=== PATIENT | male | born 1935 | race Caucasian/White ===

== ENCOUNTER 2017-09-04 10:50 | Emergency (ER) | payer MEDICARE, OTHER ==
[~2017-09-04] VITALS: Ht 180.3 cm; Wt 84.7 kg
[2017-09-04 10:50] VITALS: BP 181/86; PULSE 65; RESP 18; TEMP 97.9; O2SAT 97
[~2017-09-04 10:50] MED LIST: AMLO2.5T PO; CELE100 PO; ESZO3 PO; GLUCTAB PO; LEXA10TA PO; SOTA80TA PO; WARF2.5 PO; [UNRECOGNIZED DRUG - OTHER] PO
[2017-09-04] MEDS ORDERED: WARF-18 PO (11:12)
[2017-09-04] MEDS ORDERED: ESZO2 PO (11:12)
[2017-09-04] MEDS ORDERED: SOTA80TA PO (11:12)
[2017-09-04] MEDS ORDERED: AMLO2.5T PO (11:12)
[2017-09-04] MEDS ORDERED: LEXA10TA PO (11:12)
[2017-09-04] MEDS ORDERED: METF500T PO (11:12)
[2017-09-04] MEDS ORDERED: [UNRECOGNIZED DRUG - OTHER] (11:12)
[2017-09-04] MEDS ORDERED: WARF-58 PO (11:12)
[2017-09-04] MEDS ORDERED: CELE100C PO (11:12)
--- NOTE | 2017-09-04 11:13 | PD ---
HPI Chief Complaint: Musculoskeletal Complaint Time Seen by Provider: 11:04 Travel History International Travel<30 days: No Contact w/Intl Traveler<30days: No Traveled to known affect area: No History of Present Illness HPI 81-year-old male presents to the emergency department for evaluation of left shoulder pain. Patient states that his went to the bathroom early this morning and fell. He was trying to pick her up when he injured his left shoulder. He denies any falling. No head injury or LOC. No neck pain or back pain. No chest pain or abdominal pain. He states the pain is 10/10 to the left humeral head without radiation, worse with movement, alleviated with keeping the arm still. Pain is aching and throbbing in nature. Patient reports history of diabetes and hypertension. He denies any other symptoms or complaints at this time. Mild to moderate severity. PFSH Past Medical History Atrial Fibrillation: Yes High Cholesterol: Yes Diabetes: Yes (Type 2) Patient Takes Glucophage: Yes Diminished Hearing: No Tetanus Vaccination: Unknown Past Surgical History Appendectomy: Yes Cholecystectomy: Yes Social History Alcohol Use: No Tobacco Use: No Substance Use: No Allergies-Medications (Allergen,Severity, Reaction): Coded Allergies: No Known Allergies (Verified Adverse Reaction, Unknown, 09/04/17) Reported Meds & Prescriptions Reported Meds & Active Scripts Active Reported Warfarin 3 Mg Tab 3 Mg PO TUTHSASU Warfarin 2.5 Mg Tab 2.5 Mg PO MOWEFR [Adricor] Sotalol (Sotalol HCl) 80 Mg Tab 80 Mg PO DAILY Lunesta (Eszopiclone) 2 Mg Tab 2 Mg PO HS PRN Lexapro (Escitalopram Oxalate) 10 Mg Tab 10 Mg PO DAILY Celebrex (Celecoxib) 100 Mg Cap 100 Mg PO DAILY Amlodipine (Amlodipine Besylate) 2.5 Mg Tab 2.5 Mg PO DAILY Metformin (Metformin HCl) 500 Mg Tab 500 Mg PO BIDPC Review of Systems Except as stated in HPI: all other systems reviewed are Neg Physical Exam Narrative GENERAL: Well-nourished, well-developed elderly male patient, afebrile. SKIN: Focused skin assessment warm/dry. No lacerations or abrasions. HEAD: Normocephalic. Atraumatic. EYES: No scleral icterus. No injection or drainage. NECK: Supple, trachea midline. No JVD or lymphadenopathy. CARDIOVASCULAR: Regular rate and rhythm without murmurs, gallops, or rubs. Left radial pulse is 2+. RESPIRATORY: Breath sounds equal bilaterally. No accessory muscle use. Lung sounds are clear to auscultation. GASTROINTESTINAL: Abdomen soft, non-tender, nondistended. MUSCULOSKELETAL: No cyanosis, or edema. Patient has tenderness over left humeral head. No obvious deformity. No other bony point tenderness. He has limited flexion due to pain. He has a normal grasp strength in the left hand. He has full sensation to the distal left upper extremity. BACK: No obvious deformity. Data Data Last Documented VS Vital Signs Date Time Temp Pulse Resp B/P (MAP) Pulse Ox O2 Delivery O2 Flow Rate FiO2 09/04/17 10:50 97.9 65 18 181/86 (117) 97 Orders Orders Acetaminophen (Tylenol) (09/04/17 11:15) Ice/Cold Pack (09/04/17 11:08) Shoulder, Complete (>2vws) (09/04/17 ) [facility] Medical Decision Making Medical Screen Exam Complete: Yes Emergency Medical Condition: Yes Medical Record Reviewed: Yes Interpretation(s) Last Impressions Shoulder X-Ray 09/04/17 0000 Signed Impressions: CONCLUSION: Degenerative changes without fracture Differential Diagnosis Shoulder strain versus sprain versus fracture versus dislocation Narrative Course 81-year-old male presents to the emergency department for evaluation of left shoulder pain that started this morning after he attempted to pick his who had fallen. Patient is given Tylenol 650 mg p.o. Ice pack is applied. X-ray of the left shoulder is ordered and pending. X-ray of the left shoulder shows degenerative changes without fracture. Patient is instructed to ice, take Tylenol for pain. Patient is offered a sling , but he agrees that it is best to move the joint and not dependent on a sling. Patient is instructed to follow this primary care physician. He is to return here for any acute worsening of symptoms. He verbalizes agreement. The patient was discharged in stable condition with instructions, including return instructions and follow up instructions. Diagnosis Primary Impression: Left shoulder strain Qualified Codes: S46.912A - Strain of unspecified muscle, fascia and tendon at shoulder and upper arm level, left arm, initial encounter Referrals: Primary Care Physician call for appointment Patient Instructions: General Instructions, Shoulder Pain (ED) Additional Instructions: Ice for 20 minutes 4-5 times daily [id number] Tylenol every 4 hours as needed for pain. Follow-up with a primary care physician. Return to the emergency department for any acute worsening of symptoms. Med/Other Pt SpecificInfo: No Change to Meds Disposition: 01 DISCHARGE HOME Condition: Stable Mark,Darlene BUSTOS Sep 04, 2017 11:13
[2017-09-04] MEDS ORDERED: ACETAMINOPHEN 325 MG TAB PO ONE (11:15)
--- NOTE | 2017-09-04 12:02 | RADRPT ---
EXAM DATE: 09/04/2017 11:32 AM EDT AGE/SEX: 81 years / Male INDICATIONS: Left shoulder pain with limited ROM after lifting off floor CLINICAL DATA: This is the patient's initial encounter. Patient reports that signs and symptoms have been present for 1 day and indicates a pain score of 8/10. MEDICAL/SURGICAL HISTORY: None. None. COMPARISON: No prior exams available for comparison. FINDINGS: Views left shoulder obtained. Prominent degenerative changes. No fracture or dislocation CONCLUSION: Degenerative changes without fracture Electronically signed by: Erwin Langston MD 09/04/2017 12:00 PM EDT
== END 2017-09-04 12:30 | disposition home or self-care (01) ==
LOC: PHEFT 10:50
DX: S46.912A Strain of unspecified muscle, fascia and tendon at shoulder and upper arm level, left arm, initial encounter (principal); I10 Essential (primary) hypertension; E11.9 Type 2 diabetes mellitus without complications; I48.91 Unspecified atrial fibrillation; X50.0XXA Overexertion from strenuous movement or load, initial encounter; Y93.F2 Activity, caregiving, lifting; Y92.002 Bathroom of unspecified non-institutional (private) residence as the place of occurrence of the external cause
CPT/HCPCS: 73030; 99283